=== PATIENT | male | born 1970 | race Caucasian/White ===

== ENCOUNTER 2019-11-27 19:51 | Emergency (ER) | payer MEDICAID ==
[~2019-11-27] VITALS: Ht 177.8 cm; Wt 80.3 kg
[~2019-11-27 19:51] MED LIST: LIDOcaine 1% W/epiNEPHrine 1:200,000 10ml vial ONE
[2019-11-27 20:01] VITALS: BP 137/71
[2019-11-27] MEDS ORDERED: CEPH500C5 PO (23:32)
== END 2019-11-27 23:49 | disposition home or self-care (01) ==
LOC: ER 19:52
DX: L02.211 Cutaneous abscess of abdominal wall (principal); Z79.2 Long term (current) use of antibiotics
CPT/HCPCS: 10060; 99283

== ENCOUNTER 2020-12-01 08:32 | Day surgery (SDC) | payer MEDICAID ==
[~2020-12-01] VITALS: Ht 180.3 cm; Wt 81.8 kg
[2020-12-01 08:40] VITALS: BP 122/82
[2020-12-01] MEDS ORDERED: NO HOME MEDS (08:47)
[2020-12-01] MEDS ORDERED: fentaNYL/PF 50MCG/1 ML 2ML syringe ONE (09:38)
[2020-12-01] MEDS ORDERED: MIDAZolam 1 MG/ML 5ML VIAL ONE (09:38)
[2020-12-01 10:19] VITALS: BP 118/68
[2020-12-01 10:29] VITALS: BP 118/77
[2020-12-01 10:39] VITALS: BP 125/78
[2020-12-01 10:49] VITALS: BP 130/79
== END 2020-12-01 11:10 | disposition home or self-care (01) ==
LOC: GI LAB 08:32
PROVIDERS: ATTEND Internal Medicine Gastroenterology
DX: K92.1 Melena (principal); K62.0 Anal polyp; K62.6 Ulcer of anus and rectum; K57.30 Diverticulosis of large intestine without perforation or abscess without bleeding; F17.290 Nicotine dependence, other tobacco product, uncomplicated; Z79.899 Other long term (current) drug therapy
CPT/HCPCS: 45380; 45385; 99152; 99153; C1773; J2250; J3010; J7040; Z7512; A4620

== ENCOUNTER 2022-09-21 09:22 | Emergency (ER) | payer MEDICAID ==
[~2022-09-21] VITALS: Ht 177.8 cm; Wt 84.1 kg
[~2022-09-21 09:22] MED LIST changes: +CLIN-97 PO; -LIDOcaine 1% W/epiNEPHrine 1:200,000 10ml vial ONE; +NO HOME MEDS
[2022-09-21 09:44] VITALS: BP 120/80
[2022-09-21] MEDS ORDERED: LIDOcaine 1% W/epiNEPHrine 1:100,000 20ml vial SQ ONE (10:35)
[2022-09-21] MEDS ORDERED: SULF1TAB49 PO (12:32)
== END 2022-09-21 13:00 | disposition home or self-care (01) ==
LOC: ER 09:22
DX: L02.31 Cutaneous abscess of buttock (principal); L02.416 Cutaneous abscess of left lower limb; Z79.899 Other long term (current) drug therapy
CPT/HCPCS: 10061; 99284; J7030; A6449

== ENCOUNTER 2024-04-16 19:09 | Emergency (ER) | payer MEDICAID ==
[~2024-04-16] VITALS: Ht 177.8 cm; Wt 87.8 kg
[2024-04-16] MEDS ORDERED: AMOX-117 PO (19:28)
[2024-04-16] MEDS: amox tr/potassium clavulanate 875/125mg TAB PO ONE (19:35)
[2024-04-16 19:37] VITALS: BP 126/86; PULSE 88; RESP 16; TEMP 97.7; O2SAT 97
== END 2024-04-16 19:39 | disposition home or self-care (01) ==
LOC: ER 19:09
DX: K04.7 Periapical abscess without sinus (principal); Z79.2 Long term (current) use of antibiotics
CPT/HCPCS: 99283